=== PATIENT | male | born 1970 ===

== ENCOUNTER 2024-05-05 09:20 | Outpatient (CLI) | payer BC, SELFPAY ==
--- NOTE | ~2024-05-05 | MR_ITS ---
MRI right knee without contrast Ordering provider: Ottoniel Iqbal, History: . Chronic R knee pain . Comparison: None. FINDINGS: QUADRICEPS, PATELLAR TENDONS AND CRUCIATE LIGAMENTS: Slightly bright signal in the anterior cruciate ligament which may indicate partial tear otherwise, Normal in signal and size. No tear. MENISCI: A tear is seen in the posterior horn of the medial meniscus. No other definite tear seen. COLLATERAL LIGAMENTS: Bright signal is seen in the area of the lateral collateral ligament which may indicate partial tear. PATELLA: Normal position without tilt or subluxation. The medial and lateral patellar retinacula and medial patellofemoral ligament are intact. JOINT SPACE/ARTICULAR CARTILAGE: The articular cartilage of the knee is normal including the title examiner ior femoral condyles. No joint effusion. BONES: Normal marrow signal. SUPERFICIAL AND DEEP SOFT TISSUE: Small Daly's cyst is seen posterior to the medial femoral condyle .. No bursitis. No muscle strain. Otherwise, normal. IMPRESSION: Tear in the posterior horn of the medial meniscus. Possible partial tear in the cruciate ligament and in the lateral collateral ligament. Reviewed, dictated and finalized at location A. IMPRESSION: Tear in the posterior horn of the medial meniscus. Possible partial tear in the cruciate ligament and in the lateral collateral li gament.
== END 2024-05-05 09:21 ==
PROVIDERS: PCP Family Medicine Sports Medicine; Visit Provider Family Medicine Sports Medicine
DX: S83.241A Other tear of medial meniscus, current injury, right knee, initial encounter (principal); X58.XXXA Exposure to other specified factors, initial encounter
CPT/HCPCS: 73721